=== PATIENT | female | born 1965 | race Caucasian/White ===

== ENCOUNTER 2017-12-03 11:01 | Outpatient (CLI) | payer OTHER ==
[~2017-12-03 11:01] MED LIST: NAPROXEN500 MG PO
== END 2017-12-03 11:10 | disposition home or self-care (01) ==
LOC: SONOGRAMA 11:01
DX: N91.1 Secondary amenorrhea (principal); R10.2 Pelvic and perineal pain; Z13.89 Encounter for screening for other disorder

== ENCOUNTER → 2018-02-16 | Emergency (ER) | payer OTHER | END | disposition left against medical advice (07) | LOC: ER 23:24 | DX: Z53.20 Procedure and treatment not carried out because of patient's decision for unspecified reasons (principal) ==

== ENCOUNTER → 2018-02-17 | Emergency (ER) | payer OTHER ==
[~2018-02-17] VITALS: Ht 152.4 cm; Wt 54.4 kg
== END | disposition home or self-care (01) ==
LOC: ER 08:41
DX: M25.521 Pain in right elbow (principal)

== ENCOUNTER 2018-06-11 08:07 | Day surgery (SDC) | payer OTHER | END 2018-06-11 13:15 | disposition home or self-care (01) | LOC: AMB-ENDOS 08:07 | DX: K62.89 Other specified diseases of anus and rectum (principal); K64.4 Residual hemorrhoidal skin tags; Z12.11 Encounter for screening for malignant neoplasm of colon ==

== ENCOUNTER 2018-06-11 19:43 | Emergency (ER) | payer OTHER ==
[~2018-06-11] VITALS: Ht 152.4 cm; Wt 59.9 kg
== END 2018-06-11 21:43 | disposition home or self-care (01) ==
LOC: ER 19:43
DX: S60.222A Contusion of left hand, initial encounter (principal); W18.39XA Other fall on same level, initial encounter; Y93.89 Activity, other specified; Y92.488 Other paved roadways as the place of occurrence of the external cause; Y99.8 Other external cause status

== ENCOUNTER 2018-06-15 16:22 | Emergency (ER) | payer OTHER ==
[~2018-06-15] VITALS: Ht 152.4 cm; Wt 59.9 kg
== END 2018-06-15 18:45 | disposition home or self-care (01) ==
LOC: ER 16:22
DX: T80.89XA Other complications following infusion, transfusion and therapeutic injection, initial encounter (principal); Y92.89 Other specified places as the place of occurrence of the external cause

== ENCOUNTER 2019-11-09 09:14 | Emergency (ER) | payer OTHER ==
[~2019-11-09] VITALS: Ht 152.4 cm; Wt 59.9 kg
== END 2019-11-09 10:03 | disposition home or self-care (01) ==
LOC: ER 09:14
DX: M75.52 Bursitis of left shoulder (principal)

== ENCOUNTER → 2021-08-28 | Outpatient (CLI) | payer OTHER | END | disposition home or self-care (01) | LOC: SONOGRAMA 09:54 | PROVIDERS: ATTEND Student in an Organized Health Care Education/Training Program | DX: E04.2 Nontoxic multinodular goiter (principal) ==

== ENCOUNTER 2022-11-15 23:21 | Emergency (ER) | payer OTHER ==
[~2022-11-15] VITALS: Ht 152.4 cm; Wt 59.4 kg
== END 2022-11-16 02:18 | disposition home or self-care (01) ==
LOC: ER 23:21
DX: R10.32 Left lower quadrant pain (principal); R30.0 Dysuria

== ENCOUNTER 2023-08-26 20:02 | Emergency (ER) | payer OTHER ==
[~2023-08-26] VITALS: Ht 152.4 cm; Wt 59.0 kg
[2023-08-27] MEDS ORDERED: KETO10TA2 PO (03:03)
== END 2023-08-27 03:07 ==
LOC: ER 20:02
DX: M25.519 Pain in unspecified shoulder (principal)